=== PATIENT | female | born 2000 | race Caucasian/White ===

== ENCOUNTER 2018-10-26 13:44 | Emergency (ER) | payer BC ==
[2018-10-26] MEDS ORDERED: Lidocaine 1%* 5 ML VIAL INJ ONE (16:27)
--- NOTE | 2018-10-26 16:33 | ED ---
Laceration/Wound HPI - HPI Summary HPI Summary: Pt. is a 18 y.o female who presents to the ER for laceration to right knee that occurred just [employer]. Pt. is a student at [employer]. She states she was walking up concrete steps on campus when she slipped and hit right knee on corner of step. No other injuries were sustained. Walking and touching area makes sxs worse. Rest makes sxs better. Immunizations are up to date. No past medical hx. Sx are mild in severity. - History of Current Complaint Stated Complaint: RIGHT KNEE LAC Time Seen by Provider: 10/26/18 16:26 Hx Obtained From: Patient Pain Intensity: 3 - Allergy/Home Medications Allergies/Adverse Reactions: Allergies Allergy/AdvReac Type Severity Reaction Status Date / Time No Known Allergies Allergy Verified 10/26/18 13:51 PMH/Surg Hx/FS Hx/Imm Hx Previously Healthy: Yes Infectious Disease History: No Infectious Disease History: Denies: Traveled Outside the [place] in Last 30 Days - Family History Known Family History: Positive: Non-Contributory - Social History Occupation: Student Lives: Dormitory/Roommates Review of Systems Positive: Other - right knee pain Positive: Other - lac right knee All Other Systems Reviewed And Are Negative: Yes Physical Exam Triage Information Reviewed: Yes Vital Signs On Initial Exam: Initial Vitals Temp Pulse Resp BP Pulse Ox 97.2 F 78 16 139/84 96 10/26/18 13:48 10/26/18 13:48 10/26/18 13:48 10/26/18 13:48 10/26/18 13:48 Vital Signs Reviewed: Yes Appearance: Positive: Well-Appearing - Pt. sitting on bed in NAD. Pleasant Skin: Positive: Warm, Dry Neck: Positive: Supple Musculoskeletal: Positive: Other - 2 cm linear clean laceration noted over inferior right patella region. Pain on palpation to patella. Neurological: Positive: Normal, CN Intact II-III Psychiatric: Positive: Affect/Mood Appropriate Procedures - Laceration/Wound Repair 1 Location: lower extremity - right knee Description: Linear Anesthesia: Local, 1.0%, Lido Length, Depth and Shape: 2 cm linear full thickness Betadine Prep?: No - hibiclens Irrigated w/ Saline (ccs): 100 Laceration/Wound Explored: clean Closure: Single Layer Suture Type: Prolene - 4 3-0 Layer Closure?: No Sterile Dressing Applied?: Yes Diagnostics - Vital Signs Vital Signs Temp Pulse Resp BP Pulse Ox 10/26/18 13:48 97.2 F 78 16 139/84 96 - Laboratory Lab Statement: Any lab studies that have been ordered have been reviewed, and results considered in the medical decision making process. Laceration Repair Course/Dx - Course Course Of Treatment: Pt. presenting for right injury with laceration. Knee xray neg for acute findings per radiology. Wound was repaired as noted above. Suture removal in 10-14 days. To keep wound clean and dry. Avoid bending knee. To return to ER for redness, swelling or drainage from wound. Pt. understands and agrees with plan. - Differential Dx Differental Diagnoses: Abrasion, Fracture, Hematoma, Laceration - Clinical Impression Provider Diagnoses: Laceration, Knee contusion Discharge - Sign-Out/Discharge Documenting (check all that apply): Patient Departure Patient Received Moderate/Deep Sedation with Procedure: No - Discharge Plan Condition: Good Disposition: HOME Patient Education Materials: Care For Your Stitches (ED) Referrals: [facility] - Filiberto MORALES [Primary Care Provider] - Additional Instructions: Suture removal in 10-14 days Keep wound clean and dry Ice and elevate intermittently Avoid excessive bending of knee Tylenol or Motrin for pain as directed Return to ER for redness, swelling, or drainage from wound - Billing Disposition and Condition Condition: GOOD Disposition: Home
[2018-10-26 17:27] VITALS: BP 00/00
== END 2018-10-26 17:27 | disposition home or self-care (01) ==
LOC: ED 13:44
DX: S81.011A Laceration without foreign body, right knee, initial encounter (principal); S80.01XA Contusion of right knee, initial encounter; W01.198A Fall on same level from slipping, tripping and stumbling with subsequent striking against other object, initial encounter; Y92.9 Unspecified place or not applicable
CPT/HCPCS: 12001; 99282